=== PATIENT | female | born 1975 | race Two or more races ===

== ENCOUNTER → 2024-10-25 | Emergency (ER) | payer OTHER ==
[~2024-10-25] MED LIST: DICLOFENAC SODI75 MG PO
== END | disposition home or self-care (01) ==
LOC: ER 23:03
DX: M54.50 Low back pain, unspecified (principal)
CPT/HCPCS: 96372; 99282; J1100; J1885; J2360

== ENCOUNTER 2024-11-03 12:25 | Emergency (ER) | payer OTHER ==
[~2024-11-03] VITALS: Ht 167.6 cm; Wt 78.9 kg
[2024-11-03] MEDS ORDERED: VALIUM (12:56)
[2024-11-03] MEDS ORDERED: SOLU-MEDROL2 GM IV (12:57)
[2024-11-03] MEDS ORDERED: DECADRON (12:57)
[2024-11-03] MEDS ORDERED: ORPHENADRINE CITRATE 30 MG/ML AMPUL IM STA (13:37)
== END 2024-11-03 13:44 | disposition home or self-care (01) ==
LOC: ER 12:40
DX: M51.26 Other intervertebral disc displacement, lumbar region (principal); M50.20 Other cervical disc displacement, unspecified cervical region; Z88.6 Allergy status to analgesic agent; Z88.8 Allergy status to other drugs, medicaments and biological substances
CPT/HCPCS: 96372; 99282; J2360